=== PATIENT | female | born 1940 | race Caucasian/White ===

== ENCOUNTER 2017-04-05 10:01 | Emergency (ER) | payer MEDICARE, OTHER ==
[2017-04-05] MEDS ORDERED: Nitroglycerin 2% Ointment 1 INCH/1 GM Packet ONE (10:29)
[2017-04-05 10:35] LABS: #Basophils 0.1 thou/uL (0.0-0.2); #Eosinphils 0.2 thou/uL (0.0-0.7); #Lymphocytes 1.4 thou/uL (1.20-3.40); #Monocytes 0.9 thou/uL (0.11-0.59); #Neutrophils 8.1 thou/uL (1.40-6.50); %Basophils 1.2 % (0.0-1.0); %Eosinophils 2.1 % (0.0-10.0); %Lymphocytes 13.2 % (21.0-51.0); %Monocytes 8.3 % (0.0-10.0); %Neutrophils 75.3 % (42.0-75.0); Hemoglobin 14.9 g/dL (12.0-16.0); Mean Corpuscular HGB CONC 33.6 g/dL (32.0-36.0); Mean Corpuscular Hemoglobin 28.9 pg (27.0-31.0); Mean Corpuscular Volume 86.2 fl (81.0-99.0); Mean Platelet Volume 8.8 fL (7.4-10.4); Platelet Count 270 thou/uL (130-400); RBC Distribution Width 11.9 % (11.5-14.5); Red Blood Cell (RBC) Count 5.14 mill/uL (4.20-5.40); White Blood Cell (WBC) Count 10.7 thou/uL (4.8-10.8)
[2017-04-05 10:43] LABS: ALT (SGPT) 24 U/L (8-55); AST (SGOT) 18 U/L (5-34); Albumin 4.2 g/dL (3.4-4.8); Alkaline Phosphatase 85 U/L (40-150); Anion Gap 16 mmol/L (10-20); BUN (Urea Nitrogen) 17 mg/dL (9.8-20.1); Bilirubin, Total 0.5 mg/dL (0.2-1.2); CK (CPK) 147 U/L (29-168); Calc. Creatinine Clearance 0 mL/min (70-130); Calcium 9.8 mg/dL (7.8-10.44); Carbon Dioxide 21 mmol/L (23-31); Chloride 107 mmol/L (98-107); Estimated GFR-MDRD 72; Globulin 2.9 g/dL (2.4-3.5); Glucose 103 mg/dL (83-110); Lipase 11 U/L (8-78); Potassium 4.3 mmol/L (3.5-5.1); Protein, Total 7.1 g/dL (6.0-8.3); Sodium 140 mmol/L (136-145)
[2017-04-05 10:46] LABS: CKMB 5.5 ng/mL (0-6.6)
--- NOTE | 2017-04-05 11:03 | RAD ---
FRONTAL RADIOGRAPH CHEST: Date: 04-05-17 Comparison: 04-09-15 History: Intermittent chest pain. FINDINGS: Mild diffuse increased linear interstitial density with pulmonary hyperinflation, stable. No pneumoth orax, pleural fluid, focal consolidation or alveolar edema. IMPRESSION: No acute findings. Stable appearance to the chest. POS: [facility]
== END 2017-04-05 12:16 | disposition home or self-care (01) ==
LOC: SCSER 10:01
DX: R07.89 Other chest pain (principal); I10 Essential (primary) hypertension; Z87.891 Personal history of nicotine dependence; Z79.899 Other long term (current) drug therapy
CPT/HCPCS: 71045; 80053; 82553; 83690; 84484; 85025; 93005

== ENCOUNTER 2018-06-05 09:15 | Emergency (ER) | payer MEDICARE, OTHER ==
[2018-06-05] MEDS ORDERED: Meclizine HCl 25 MG TAB ONE (09:42)
[2018-06-05 09:56] LABS: #Basophils 0.1 thou/uL (0.0-0.2); #Eosinphils 0.1 thou/uL (0.0-0.7); #Lymphocytes 1.3 thou/uL (1.20-3.40); #Monocytes 0.8 thou/uL (0.11-0.59); #Neutrophils 8.9 thou/uL (1.40-6.50); %Basophils 0.7 % (0.0-1.0); %Lymphocytes 11.3 % (21.0-51.0); %Monocytes 7.4 % (0.0-10.0); %Neutrophils 79.6 % (42.0-75.0); Hemoglobin 15.1 g/dL (12.0-16.0); Mean Corpuscular HGB CONC 32.5 g/dL (32.0-36.0); Mean Corpuscular Hemoglobin 29.6 pg (27.0-31.0); Mean Corpuscular Volume 91.2 fL (78.0-98.0); Platelet Count 258 thou/uL (130-400); RBC Distribution Width 12.3 % (11.5-14.5); White Blood Cell (WBC) Count 11.1 thou/uL (4.8-10.8)
--- NOTE | 2018-06-05 10:05 | RAD ---
XR Chest 1 View Portable History: [Cough] Comparison: Radiograph April 05, 2017 Findings: Lungs are hyperinflated. No pneumothorax. No significant effusion. Cardiac silhouette and m ediastinal contours are similar. No acute osseous abnormality. Impression: Lung hyperinflation suggesting obstructive pulmonary disease. No acute findings.
[2018-06-05 10:26] LABS: ALT (SGPT) 23 U/L (8-55); AST (SGOT) 21 U/L (5-34); Albumin 3.7 g/dL (3.4-4.8); Alkaline Phosphatase 93 U/L (40-150); Anion Gap 11 mmol/L (10-20); BUN (Urea Nitrogen) 22 mg/dL (9.8-20.1); Bilirubin, Total 0.7 mg/dL (0.2-1.2); Calc. Creatinine Clearance 0 mL/min (70-130); Calcium 9.7 mg/dL (7.8-10.44); Carbon Dioxide 27 mmol/L (23-31); Chloride 105 mmol/L (98-107); Estimated GFR-MDRD 71; Globulin 2.5 g/dL (2.4-3.5); Glucose 108 mg/dL (83-110); Potassium 4.3 mmol/L (3.5-5.1); Protein, Total 6.2 g/dL (6.0-8.3); Sodium 139 mmol/L (136-145)
== END 2018-06-05 10:35 | disposition home or self-care (01) ==
LOC: ERS 09:15
DX: H81.399 Other peripheral vertigo, unspecified ear (principal); J32.9 Chronic sinusitis, unspecified; I10 Essential (primary) hypertension; Z87.891 Personal history of nicotine dependence
CPT/HCPCS: 36415; 71045; 80053; 84484; 85025; 93005; J8499

== ENCOUNTER 2019-03-05 06:51 | Outpatient (CLI) | payer MEDICARE, OTHER ==
--- NOTE | 2019-03-05 07:54 | RAD ---
TWO VIEWS CHEST: DATE: 03/05/2019. PROVIDED CLINICAL HISTORY: Pulmonary emphysema. COMPARISON: 01/29/2019. FINDINGS: Cardiac and mediastinal silhouette is unchanged in appearance. Chronic obstructive changes are again seen. No focal consolidation, pleural fluid, or pneumothorax apparent. Degenerative changes are se en involving the thoracic spine. IMPRESSION: No evidence for an acute cardiopulmonary process. POS: [facility]
--- NOTE | 2019-03-05 09:07 | CT ---
CTA ABDOMEN AND PELVIS WITH BILATERAL LOWER EXTREMITY RUNOFF: INDICATIONS: Bilateral lower extremity claudication TECHNIQUE: Multiple CTA images were obtained of the abdomen and pelvis with bilateral lower extremity runoff uti lizing IV contrast and 3D reformatted imaging. Axial, coronal and sagittal reformatted images were constructed from the raw data. FINDINGS: ABDOMEN: Lung bases: Clear Liver: No focal lesion. Gallbladder: Normal appearing. Pancreas: Normal. Adrenal glands: Normal. Spleen: Normal. Kidneys and ureters: There are small right renal cysts. No hydronephrosis is demonstrated. Left kidne y is normal-appearing. Lymph nodes:No lymphadenopathy. Free fluid in abdomen:No free fluid is evident. PELVIS: Small and large bowel: Normal Appendix:Not seen Bladder: Normal. Rectal and perirectal soft tissues:Normal. Reproductive structures: Normal. Free fluid in pelvis: No free fluid is evident. Lymphadenopathy pelvis: No lymphadenopathy is evident. Osseous structures: No acute osseous abnormality. No destructive osteolytic or osteoblastic lesion i s identified. There is scattered degenerative and osteoarthritic changes. Soft tissues:Normal. VASCULATURE: Aorta: There is moderate to severe atherosclerotic calcification involving the abdominal aorta. The a bdominal aorta is normal in caliber. 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 This is a short segment plaque measuring approximately 1 cm in craniocaudad length and is best seen on image 54 of series 2 a nd image 107 of the coronal series. 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 There is moderate narrowi ng of its proximal segment. SMA:There is severe narrowing involving the proximal SMA approximately 1 cm distal to its origin. 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 The right renal duplicated artery dmitriy ginates anterior to the main right renal artery. There is mild narrowing at the origin the remaining right renal artery. A duplicated left renal artery originates inferior to the left main moises al artery and feeds the inferior pole of the left kidney. There is moderate narrowing involving the origin and proximal segment of the left main renal artery. KATELYNN:Normal in caliber without evidence of stenosis or occlusion. Right common iliac artery: There is high-grade stenosis due to partially calcified atherosclerotic pl aque (approximately 90% stenosis) involving the proximal right common iliac artery on image 98 of series 2. Right external iliac artery: Mild atherosclerotic calcification without luminal stenosis Right internal iliac artery: Mild atherosclerotic calcification without luminal stenosis visible. Left common iliac artery: There is moderate narrowing involving the proximal left common iliac artery there is moderate to severe narrowing involving its mid segment from images 96 through 100 of the axial series. This is inducing at least 90% narrowing of the left common iliac artery along its mid s egment. Left external iliac artery: Normal in caliber without evidence of stenosis or occlusion.. Left internal iliac artery: Completely occluded with reconstitution distally through collaterals. Right common femoral artery: There is 50% luminal caliber narrowing involving the distal right commo n femoral artery just prior to its bifurcation. Right deep femoral artery: Normal in caliber without evidence of stenosis or occlusion. Right superficial femoral artery: Normal in caliber without evidence of stenosis or occlusion. Right popliteal artery: Normal in caliber without evidence of stenosis or occlusion. Right posterior tibial artery: Normal in caliber without evidence of stenosis or occlusion. Right anterior tibial artery: Normal in caliber without evidence of stenosis or occlusion. Right peroneal artery: Normal in caliber without evidence of stenosis or occlusion. Left common femoral artery: Normal in caliber without evidence of stenosis or occlusion. Left deep femoral artery: Normal in caliber without evidence of stenosis or occlusion. Left superficial femoral artery: Normal in caliber without evidence of stenosis or occlusion. Left popliteal artery: There is some mild luminal caliber narrowing involving the distal left poplit eal artery due to mild atherosclerotic plaque Left posterior tibial artery: Normal in caliber without evidence of stenosis or occlusion. Left anterior tibial artery: Normal in caliber without evidence of stenosis or occlusion. Left peroneal artery: Normal in caliber without evidence of stenosis or occlusion. Additional findings: None. IMPRESSION: 1. 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 2. 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 3. Severe narrowing involving the proximal SMA. 4. Moderate narrowing involving the origin and proximal segment of the left main renal artery. 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 5. Severe narrowing involving the proximal right common iliac artery. 6. Year narrowing involving the mid segment of the left common iliac artery. 7. 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 8. Approximately 50% luminal caliber narrowing involving the distal right common femoral artery.
[2019-03-05] MEDS ORDERED: Iopamidol 370 76% 100 ML VIAL ONE (13:52)
== END 2019-03-05 06:52 | disposition home or self-care (01) ==
LOC: CT 06:51
PROVIDERS: ATTEND Family Medicine
DX: N18.3 Chronic kidney disease, stage 3 (moderate) (principal); I73.9 Peripheral vascular disease, unspecified; Q25.1 Coarctation of aorta; J43.9 Emphysema, unspecified; I70.0 Atherosclerosis of aorta; I77.1 Stricture of artery; I74.5 Embolism and thrombosis of iliac artery; I77.4 Celiac artery compression syndrome; K55.1 Chronic vascular disorders of intestine; I70.201 Unspecified atherosclerosis of native arteries of extremities, right leg
CPT/HCPCS: 71046; 75635; 82565; Q9967

== ENCOUNTER 2020-10-29 11:15 | Outpatient (CLI) | payer MEDICARE, OTHER | END 2020-10-29 11:16 | disposition home or self-care (01) | LOC: BICRAD 11:15 | PROVIDERS: ATTEND Physician Assistant Medical | DX: K59.00 Constipation, unspecified (principal); R14.0 Abdominal distension (gaseous) | CPT/HCPCS: 74019 ==

== ENCOUNTER 2022-05-11 08:18 | Inpatient (IN) | payer MEDICARE, OTHER ==
[2022-05-11] MEDS ORDERED: fentaNYL PF 100 MCG/2 ML SYRINGE ONE (08:59)
[2022-05-11] MEDS ORDERED: Norepinephrine 4 MG/4 ML VIAL ONE (09:00)
[2022-05-11] MEDS ORDERED: Ketamine 50 MG/ML (10ML VIAL) ONE (09:05)
[2022-05-11] MEDS ORDERED: Albumin 5% 0 ML ONE (09:05)
[2022-05-11] MEDS ORDERED: Midazolam HCl 5 mg/5 ml Vial ONE (09:16)
[2022-05-11] MEDS ORDERED: Vecuronium 10 MG VIAL ONE (09:36)
[2022-05-11] MEDS ORDERED: Phenylephrine 10 MG/ML VIAL ONE (09:36)
[2022-05-11] MEDS ORDERED: Dexamethasone 20 MG/5 ML VIAL ONE (09:36)
[2022-05-11] MEDS ORDERED: PROPOFOL 200 MG/20 ML VIAL ONE (09:36)
[2022-05-11] MEDS ORDERED: Succinylcholine Chloride 100 MG/5 ML SYRINGE FS ONE (09:36)
[2022-05-11] MEDS ORDERED: Propofol 1,000 MG/100 ML VIAL IV ONE (11:21)
[2022-05-11] MEDS ORDERED: Morphine Sulfate 2 MG/ML SYRINGE SLOW IVP PRN (11:44)
[2022-05-11] MEDS ORDERED: HYDROmorphone 2 MG/ML VIAL SLOW IVP PRN (11:44)
[2022-05-11] MEDS ORDERED: Promethazine HCl 25 MG/ML VIAL IM PRN (11:44)
[2022-05-11] MEDS ORDERED: Ondansetron HCl/PF 4 MG/2 ML Vial IVP PRN (11:44)
[2022-05-11] MEDS ORDERED: PACU-Morphine 4MG/ML VIAL SLOW IVP PRN (11:44)
[2022-05-11] MEDS ORDERED: Fentanyl 250 MCG/5 ML VIAL ONE (12:16)
[2022-05-11] MEDS ORDERED: HYDROmorphone 0.5 MG/0.5 ML SYRINGE ONE (12:54)
[2022-05-11] MEDS ORDERED: Fentanyl CADD 100 ML IV SCH (13:45)
[2022-05-11] MEDS ORDERED: Propofol 1,000 MG/100 ML VIAL IV PRN (13:45)
[2022-05-11] MEDS ORDERED: Fentanyl BOLUS 250 ML IVPB PRN (13:45)
[2022-05-11] MEDS ORDERED: Propofol BOLUS 1,000 MG/100 ML VIAL IV PRN (13:45)
[2022-05-11] MEDS ORDERED: Lorazepam 2 MG/ML VIAL SLOW IVP PRN (13:45)
[2022-05-11] MEDS ORDERED: DISCONTINUE PREVIOUS NARCOTIC PAIN MEDICATIONS AND BENZODIAZEPINES FS SCH (13:45)
[2022-05-11] MEDS ORDERED: Morphine 2 MG/ML VIAL SLOW IVP PRN (13:45)
[2022-05-11] MEDS ORDERED: Fentanyl CADD 100 ML ONE (14:39)
[2022-05-11 14:44] LABS: Actual Bicarbonate (HCO3a) 21.8 mEq/L (22-28); Base Excess (BEa) -3.3 mEq/L (-2.0 to +3.0); CO2 Tension 39.3 mmHg (35.0-45.0); Calcium, Ionized (arterial) 1.18 mmol/L (1.12-1.30); Carboxyhemoglobin (COHb) 1.2 gm% (0.0-3.0); Hemoglobin (Hb) 13.5 g/dL (12.0-16.0); O2 Tension (PaO2), arterial 82.3 mmHg (> 60.0); Potassium - ABG Lab 3.85 mmol/L (3.70-5.30); pH, Arterial 7.36 (7.35-7.45)
[2022-05-11 14:45] LABS: ALV-art Gradient 296.375 mmHg (0-20); Puncture Site Arterial Line
[2022-05-11] MEDS ORDERED: Sodium Chloride 0.45% 1,000 ML IV SCH ×2 (14:45→16:50)
[2022-05-11] MEDS ORDERED: Heparin 10,000 UNITS/ 10 ML VIAL SLOW IVP SCH (16:15)
[2022-05-11] MEDS ORDERED: Heparin 25,000 units/D5W 500 ML IVPB SCH (16:15)
[2022-05-11] MEDS ORDERED: hydrALAZINE 20 MG/ML VIAL SLOW IVP PRN (16:44)
[2022-05-11] MEDS ORDERED: Dextrose 5% in Water 1,000 ML IV PRN (16:44)
[2022-05-11] MEDS ORDERED: Dextrose 50% Abboject 50 ML SYRINGE SLOW IVP PRN (16:44)
[2022-05-11] MEDS ORDERED: Insulin Regular 300 UNITS/3 ML VIAL SC PRN (16:44)
[2022-05-11] MEDS ORDERED: Ondansetron PF 4 MG/2 ML Vial IVP PRN (16:44)
[2022-05-11 16:51] LABS: Hemoglobin 13.1 g/dL (12.0-16.0); Platelet Count 169 10x3/uL (130-400)
[2022-05-11] MEDS: Sodium Chloride 0.45% 1,000 ML IV SCH (21:00)
[2022-05-11] MEDS: Famotidine/PF 20 mg/2ml Vial SLOW IVP SCH (21:14)
[2022-05-12] MEDS: Sodium Chloride 0.45% 1,000 ML IV SCH (02:00)
[2022-05-12 03:09] LABS: CO2 Tension 42.7 mmHg (35.0-45.0); Calcium, Ionized (arterial) 1.14 mmol/L (1.12-1.30); Carboxyhemoglobin (COHb) 0.9 gm% (0.0-3.0); Hemoglobin (Hb) 12.3 g/dL (12.0-16.0); O2 Tension (PaO2), arterial 98.2 mmHg (> 60.0); pH, Arterial 7.31 (7.35-7.45)
[2022-05-12 03:11] LABS: ALV-art Gradient 204.925 mmHg (0-20); Puncture Site Arterial Line
[2022-05-12] MEDS ORDERED: Sodium Chloride 0.9% 1,000 ML IV SCH ×2 (04:15→08:45)
[2022-05-12 05:25] LABS: Magnesium 1.6 mg/dL (1.6-2.6)
[2022-05-12] MEDS ORDERED: Dexmedetomidine In 0.9 % NaCl 100 ML IVPB SCH (05:30)
[2022-05-12] MEDS ORDERED: Sodium Chloride 0.9% 500 ML IV SCH (06:45)
[2022-05-12] MEDS ORDERED: Hydrocortisone Sod Succ/PF 100 mg/2 ml Vial IVP SCH (06:45)
[2022-05-12 07:26] LABS: Actual Bicarbonate (HCO3a) 20.3 mEq/L (22-28); Base Excess (BEa) -7.1 mEq/L (-2.0 to +3.0); CO2 Tension 48.6 mmHg (35.0-45.0); Calcium, Ionized (arterial) 1.15 mmol/L (1.12-1.30); Carboxyhemoglobin (COHb) 0.8 gm% (0.0-3.0); Hemoglobin (Hb) 11.9 g/dL (12.0-16.0); O2 Tension (PaO2), arterial 83.3 mmHg (> 60.0); Potassium - ABG Lab 4.52 mmol/L (3.70-5.30); pH, Arterial 7.24 (7.35-7.45)
[2022-05-12 07:29] LABS: Puncture Site Arterial Line
[2022-05-12 07:34] LABS: #Lymphocytes 0.9 thou/uL (1.20-3.40); #Neutrophils 16.2 thou/uL (1.40-6.50); %Basophils 0.2 % (0.0-1.0); %Lymphocytes 4.5 % (21.0-51.0); %Monocytes 10.3 % (0.0-10.0); Hemoglobin 11.7 g/dL (12.0-16.0); Mean Corpuscular HGB CONC 33.1 g/dL (32.0-36.0); Mean Corpuscular Hemoglobin 31.5 pg (27.0-31.0); Mean Corpuscular Volume 95.1 fl (78.0-98.0); Mean Platelet Volume 8.3 fL (7.4-10.4); Platelet Count 161 10x3/uL (130-400); RBC Distribution Width 12.4 % (11.5-14.5); Red Blood Cell (RBC) Count 3.73 mill/uL (4.20-5.40); White Blood Cell (WBC) Count 19.1 10x3/uL (4.8-10.8)
[2022-05-12 07:49] LABS: Lactic Acid 1.1 mmol/L (0.5-2.2)
[2022-05-12 07:58] LABS: ALT (SGPT) 13 U/L (8-55); AST (SGOT) 15 U/L (5-34); Albumin 3.7 g/dL (3.4-4.8); Alkaline Phosphatase 43 U/L (40-110); Anion Gap 11 mmol/L (10-20); BUN (Urea Nitrogen) 20 mg/dL (9.8-20.1); Bilirubin, Total 0.7 mg/dL (0.2-1.2); Calc. Creatinine Clearance 88 mL/min (70-130); Carbon Dioxide 19 mmol/L (23-31); Chloride 108 mmol/L (98-107); Estimated GFR 74; Globulin 2.2 g/dL (2.4-3.5); Glucose 115 mg/dL (83-110); Magnesium 1.6 mg/dL (1.6-2.6); Phosphorus 2.9 mg/dL (2.3-4.7); Potassium 4.5 mmol/L (3.5-5.1); Protein, Total 5.9 g/dL (5.8-8.1); Sodium 133 mmol/L (136-145)
[2022-05-12] MEDS ORDERED: Magnesium 2 GM/50 ML(in water) 2 GM in Premix Bag 1 BAG IVPB SCH (08:45)
[2022-05-12] MEDS: Famotidine/PF 20 mg/2ml Vial SLOW IVP SCH ×2 (08:58→20:38)
[2022-05-12] MEDS: cefOXitin 2 GM in Sodium Chloride 0.9% 100 ML IVPB SCH ×2 (08:59→18:01)
[2022-05-12] MEDS ORDERED: diphenhydrAMINE 25 MG CAP PO PRN (10:06)
[2022-05-12] MEDS ORDERED: Ondansetron PF 4 MG/2 ML Vial IVP PRN (10:06)
[2022-05-12] MEDS ORDERED: diphenhydrAMINE 50 MG/ML VIAL IVP PRN (10:06)
[2022-05-12] MEDS ORDERED: diphenhydrAMINE 50 MG/ML VIAL IM PRN (10:06)
[2022-05-12] MEDS ORDERED: Naloxone HCl 0.4 mg/ml Vial IV PRN (10:06)
[2022-05-12] MEDS ORDERED: HYDROmorphone 10 mg/100 ml CADD IVPB PRN (10:06)
[2022-05-12] MEDS ORDERED: Promethazine HCl 25 MG/ML VIAL IM PRN (10:06)
[2022-05-12] MEDS ORDERED: Furosemide 40 MG/4 ML VIAL ONE (10:11)
[2022-05-12] MEDS ORDERED: Communication Order-Pharmacy FS SCH (10:15)
[2022-05-12] MEDS ORDERED: Furosemide 40 MG/4 ML VIAL SLOW IVP SCH (10:15)
[2022-05-12] MEDS: Hydrocortisone Sod Succ/PF 100 mg/2 ml Vial IVP SCH ×3 (13:19→23:42)
[2022-05-12] MEDS: Ketorolac Tromethamine 30 MG/ML VIAL IVP SCH (21:03)
[2022-05-13] MEDS ORDERED: Haloperidol Lactate 5 MG/ML VIAL SLOW IVP SCH (00:30)
[2022-05-13] MEDS: cefOXitin 2 GM in Sodium Chloride 0.9% 100 ML IVPB SCH ×3 (01:52→17:17)
[2022-05-13] MEDS: Ketorolac Tromethamine 30 MG/ML VIAL IVP SCH (02:21)
[2022-05-13 04:56] LABS: #Basophils 0.1 thou/uL (0.0-0.2); #Lymphocytes 0.5 thou/uL (1.20-3.40); #Monocytes 1.1 thou/uL (0.11-0.59); #Neutrophils 13.1 thou/uL (1.40-6.50); %Basophils 0.8 % (0.0-1.0); %Eosinophils 0.2 % (0.0-10.0); %Lymphocytes 3.1 % (21.0-51.0); %Monocytes 7.3 % (0.0-10.0); %Neutrophils 88.7 % (42.0-75.0); Hemoglobin 9.2 g/dL (12.0-16.0); Mean Corpuscular HGB CONC 32.5 g/dL (32.0-36.0); Mean Corpuscular Hemoglobin 30.5 pg (27.0-31.0); Mean Corpuscular Volume 93.8 fl (78.0-98.0); Mean Platelet Volume 9.8 fL (7.4-10.4); Platelet Count 156 10x3/uL (130-400); RBC Distribution Width 12.2 % (11.5-14.5); Red Blood Cell (RBC) Count 3.02 mill/uL (4.20-5.40); White Blood Cell (WBC) Count 14.7 10x3/uL (4.8-10.8)
[2022-05-13 05:09] LABS: Anion Gap 11 mmol/L (10-20); BUN (Urea Nitrogen) 26 mg/dL (9.8-20.1); Calc. Creatinine Clearance 70 mL/min (70-130); Calcium 8.4 mg/dL (7.8-10.44); Carbon Dioxide 22 mmol/L (23-31); Chloride 110 mmol/L (98-107); Estimated GFR 56; Glucose 129 mg/dL (83-110); Magnesium 2.1 mg/dL (1.6-2.6); Phosphorus 2.6 mg/dL (2.3-4.7); Potassium 4.2 mmol/L (3.5-5.1); Sodium 139 mmol/L (136-145)
[2022-05-13] MEDS: Hydrocortisone Sod Succ/PF 100 mg/2 ml Vial IVP SCH ×3 (05:22→17:17)
[2022-05-13] MEDS ORDERED: Sodium Phosphate 15 MMOL in Sodium Chloride 0.9% 250 ML 250 ML IVPB SCH (08:00)
[2022-05-13] MEDS ORDERED: Midazolam HCl 5 mg/5 ml Vial ONE (08:48)
[2022-05-13] MEDS ORDERED: Fentanyl 250 MCG/5 ML VIAL ONE ×2 (08:48→11:17)
[2022-05-13] MEDS ORDERED: Dexmedetomidine 200 MCG/2 ML VIAL ONE (08:49)
[2022-05-13] MEDS ORDERED: Norepinephrine 4 MG/4 ML VIAL ONE (08:55)
[2022-05-13] MEDS: Famotidine/PF 20 mg/2ml Vial SLOW IVP SCH ×2 (09:00→21:49)
[2022-05-13 09:04] LABS: INR-International Normal Ratio 1.2; PTT 35.8 sec (22.9-36.1); Prothrombin Time 15.1 sec (12.0-14.7)
[2022-05-13] MEDS ORDERED: Ondansetron PF 4 MG/2 ML Vial ONE (09:41)
[2022-05-13] MEDS ORDERED: GLYCOPYRROLATE/PF 0.2 MG/ML VIAL ONE (09:41)
[2022-05-13] MEDS ORDERED: Rocuronium Bromide 10 MG/ML (10ML VIAL) ONE (09:41)
[2022-05-13] MEDS ORDERED: Dexamethasone 20 MG/5 ML VIAL ONE (09:41)
[2022-05-13] MEDS ORDERED: NEOSTIGMINE 3 MG/3 ML SYR 3 MG/3 ML SYRINGE ONE (09:41)
[2022-05-13] MEDS ORDERED: PROPOFOL 200 MG/20 ML VIAL ONE (09:41)
[2022-05-13] MEDS ORDERED: SUGAMMADEX SODIUM 200 MG/2 ML VIAL ONE (11:11)
[2022-05-13] MEDS ORDERED: HYDROmorphone 2 MG/ML VIAL SLOW IVP PRN (11:25)
[2022-05-13] MEDS ORDERED: Promethazine HCl 25 MG/ML VIAL IM PRN (11:25)
[2022-05-13] MEDS ORDERED: Ondansetron HCl/PF 4 MG/2 ML Vial IVP PRN (11:25)
[2022-05-13] MEDS ORDERED: HYDROmorphone 0.5 MG/0.5 ML SYRINGE ONE (11:59)
[2022-05-13] MEDS ORDERED: Heparin 25,000 units/D5W 500 ML IVPB SCH (15:45)
[2022-05-13 16:33] LABS: Hemoglobin 10.4 g/dL (12.0-16.0); Platelet Count 190 10x3/uL (130-400)
[2022-05-13] MEDS: Carvedilol 6.25 MG TAB PO SCH (17:18)
[2022-05-13] MEDS: Heparin 10,000 UNITS/ 10 ML VIAL SLOW IVP SCH ×2 (17:18→22:05)
[2022-05-13] MEDS: Rosuvastatin 20 MG TAB PO SCH (21:49)
[2022-05-14] MEDS: Hydrocortisone Sod Succ/PF 100 mg/2 ml Vial IVP SCH ×4 (00:40→19:11)
[2022-05-14] MEDS: cefOXitin 2 GM in Sodium Chloride 0.9% 100 ML IVPB SCH ×3 (00:40→18:42)
[2022-05-14 04:28] LABS: #Lymphocytes 0.6 thou/uL (1.20-3.40); #Monocytes 1.2 thou/uL (0.11-0.59); %Basophils 0.2 % (0.0-1.0); %Eosinophils 0.1 % (0.0-10.0); %Lymphocytes 4.3 % (21.0-51.0); %Monocytes 8.4 % (0.0-10.0); Hemoglobin 9.4 g/dL (12.0-16.0); Mean Corpuscular HGB CONC 34.4 g/dL (32.0-36.0); Mean Corpuscular Hemoglobin 32.4 pg (27.0-31.0); Mean Corpuscular Volume 94.1 fl (78.0-98.0); Mean Platelet Volume 8.6 fL (7.4-10.4); Platelet Count 177 10x3/uL (130-400); RBC Distribution Width 12.5 % (11.5-14.5); Red Blood Cell (RBC) Count 2.91 mill/uL (4.20-5.40); White Blood Cell (WBC) Count 13.8 10x3/uL (4.8-10.8)
[2022-05-14 04:51] LABS: Anion Gap 11 mmol/L (10-20); BUN (Urea Nitrogen) 26 mg/dL (9.8-20.1); Calc. Creatinine Clearance 89 mL/min (70-130); Calcium 8.6 mg/dL (7.8-10.44); Carbon Dioxide 22 mmol/L (23-31); Chloride 112 mmol/L (98-107); Estimated GFR 75; Glucose 162 mg/dL (83-110); Magnesium 2.2 mg/dL (1.6-2.6); PTT 198.8 sec (22.9-36.1); Phosphorus 2.2 mg/dL (2.3-4.7); Potassium 4.3 mmol/L (3.5-5.1); Sodium 141 mmol/L (136-145)
[2022-05-14] MEDS ORDERED: Sodium Phosphate 30 MMOL in Sodium Chloride 0.9% 250 ML 250 ML IVPB SCH (09:00)
[2022-05-14] MEDS ORDERED: Losartan 25 MG TAB PO SCH (09:00)
[2022-05-14] MEDS: Carvedilol 6.25 MG TAB PO SCH ×2 (09:03→18:42)
[2022-05-14] MEDS: Aspirin 81 mg Enteric Coated Tablet PO SCH (09:03)
[2022-05-14] MEDS: Famotidine/PF 20 mg/2ml Vial SLOW IVP SCH ×2 (09:04→21:10)
[2022-05-14] MEDS ORDERED: traMADol HCl 50 MG TAB PO PRN (11:54)
[2022-05-14] MEDS: Acetaminophen 500 MG TAB PO SCH ×2 (12:15→18:42)
[2022-05-14] MEDS: traMADol HCl 50 MG TAB PO SCH ×2 (12:16→18:43)
[2022-05-14] MEDS: Rosuvastatin 20 MG TAB PO SCH (21:10)
[2022-05-15] MEDS: Hydrocortisone Sod Succ/PF 100 mg/2 ml Vial IVP SCH ×2 (01:32→06:19)
[2022-05-15] MEDS: Acetaminophen 500 MG TAB PO SCH ×4 (01:33→18:08)
[2022-05-15] MEDS: traMADol HCl 50 MG TAB PO SCH ×4 (01:34→18:08)
[2022-05-15] MEDS: cefOXitin 2 GM in Sodium Chloride 0.9% 100 ML IVPB SCH ×3 (01:35→18:04)
[2022-05-15 05:15] LABS: #Lymphocytes 0.8 thou/uL (1.20-3.40); #Monocytes 1.2 thou/uL (0.11-0.59); #Neutrophils 11.5 thou/uL (1.40-6.50); %Basophils 0.1 % (0.0-1.0); %Lymphocytes 5.7 % (21.0-51.0); %Monocytes 8.7 % (0.0-10.0); %Neutrophils 85.5 % (42.0-75.0); Hemoglobin 9.6 g/dL (12.0-16.0); Mean Corpuscular HGB CONC 33.6 g/dL (32.0-36.0); Mean Corpuscular Hemoglobin 31.4 pg (27.0-31.0); Mean Corpuscular Volume 93.6 fl (78.0-98.0); Mean Platelet Volume 8.6 fL (7.4-10.4); Platelet Count 185 10x3/uL (130-400); RBC Distribution Width 12.4 % (11.5-14.5); Red Blood Cell (RBC) Count 3.05 mill/uL (4.20-5.40); White Blood Cell (WBC) Count 13.4 10x3/uL (4.8-10.8)
[2022-05-15 06:13] LABS: Anion Gap 10 mmol/L (10-20); BUN (Urea Nitrogen) 27 mg/dL (9.8-20.1); Calc. Creatinine Clearance 83 mL/min (70-130); Calcium 8.7 mg/dL (7.8-10.44); Carbon Dioxide 23 mmol/L (23-31); Chloride 112 mmol/L (98-107); Estimated GFR 66; Glucose 137 mg/dL (83-110); Magnesium 2.4 mg/dL (1.6-2.6); Phosphorus 2.9 mg/dL (2.3-4.7); Potassium 4.1 mmol/L (3.5-5.1); Sodium 141 mmol/L (136-145)
[2022-05-15] MEDS ORDERED: PHOS-NAK 1 PKT PACK PO SCH (07:45)
[2022-05-15] MEDS: Losartan 25 MG TAB PO SCH (08:18)
[2022-05-15] MEDS: Aspirin 81 mg Enteric Coated Tablet PO SCH (08:18)
[2022-05-15] MEDS: Carvedilol 6.25 MG TAB PO SCH ×2 (08:18→18:05)
[2022-05-15] MEDS: Famotidine/PF 20 mg/2ml Vial SLOW IVP SCH ×2 (08:18→21:54)
[2022-05-15] MEDS: Hydrochlorothiazide 25 MG TAB PO SCH (08:18)
[2022-05-15] MEDS ORDERED: Rosuvastatin 10 MG TAB PO SCH (09:00)
[2022-05-15] MEDS ORDERED: Furosemide 40 MG/4 ML VIAL SLOW IVP SCH (10:00)
[2022-05-15] MEDS: Albuterol 200 PUFF (6.7GM INHALER) INH SCH ×2 (12:57→19:18)
[2022-05-15] MEDS: Rosuvastatin 20 MG TAB PO SCH (21:54)
[2022-05-16] MEDS: Albuterol 200 PUFF (6.7GM INHALER) INH SCH ×4 (00:53→19:02)
[2022-05-16] MEDS: Acetaminophen 500 MG TAB PO SCH ×4 (01:23→17:30)
[2022-05-16] MEDS: traMADol HCl 50 MG TAB PO SCH ×4 (01:24→17:30)
[2022-05-16] MEDS: cefOXitin 2 GM in Sodium Chloride 0.9% 100 ML IVPB SCH ×3 (02:43→17:29)
[2022-05-16 06:10] VITALS: BMI 34.2
[2022-05-16 06:47] LABS: Hemoglobin 9.6 g/dL (12.0-16.0); Mean Corpuscular HGB CONC 31.3 g/dL (32.0-36.0); Mean Corpuscular Hemoglobin 29.4 pg (27.0-31.0); Mean Corpuscular Volume 93.8 fl (78.0-98.0); Mean Platelet Volume 8.4 fL (7.4-10.4); Platelet Count 227 10x3/uL (130-400); RBC Distribution Width 12.5 % (11.5-14.5); Red Blood Cell (RBC) Count 3.26 mill/uL (4.20-5.40); White Blood Cell (WBC) Count 13.4 10x3/uL (4.8-10.8)
[2022-05-16 06:53] LABS: Anion Gap 7 mmol/L (10-20); BUN (Urea Nitrogen) 24 mg/dL (9.8-20.1); Calc. Creatinine Clearance 75 mL/min (70-130); Carbon Dioxide 30 mmol/L (23-31); Chloride 106 mmol/L (98-107); Estimated GFR 60; Glucose 121 mg/dL (83-110); Magnesium 2.2 mg/dL (1.6-2.6); Phosphorus 2.4 mg/dL (2.3-4.7); Potassium 3.2 mmol/L (3.5-5.1); Sodium 140 mmol/L (136-145)
[2022-05-16 07:26] LABS: Band 1 % (5-11); Eosinophils 1 % (0-10); Lymphocytes 13 % (21-51); MDiff Complete? YES; Monocytes 5 % (0-10); Neutrophil 80 % (42-75); Platelet Morphology Comment Appears Adequate; Polychromasia SLIGHT = 2-3 cells (100X) (0-2/hpf)
[2022-05-16] MEDS ORDERED: Potassium Phosphate 30 MMOL in Sodium Chloride 0.9% 250 ML 250 ML IVPB SCH (07:30)
[2022-05-16] MEDS: Losartan 25 MG TAB PO SCH (08:20)
[2022-05-16] MEDS: Famotidine/PF 20 mg/2ml Vial SLOW IVP SCH ×2 (08:21→21:20)
[2022-05-16] MEDS: Carvedilol 6.25 MG TAB PO SCH ×2 (08:21→17:29)
[2022-05-16] MEDS: Hydrochlorothiazide 25 MG TAB PO SCH (08:21)
[2022-05-16] MEDS: Aspirin 81 mg Enteric Coated Tablet PO SCH (08:21)
[2022-05-16] MEDS: Rosuvastatin 20 MG TAB PO SCH (21:19)
[2022-05-17] MEDS: Albuterol 200 PUFF (6.7GM INHALER) INH SCH ×3 (00:05→14:27)
[2022-05-17] MEDS: traMADol HCl 50 MG TAB PO SCH ×3 (00:29→11:20)
[2022-05-17] MEDS: cefOXitin 2 GM in Sodium Chloride 0.9% 100 ML IVPB SCH ×2 (00:29→09:14)
[2022-05-17] MEDS: Acetaminophen 500 MG TAB PO SCH ×3 (00:30→11:20)
[2022-05-17 06:19] LABS: #Eosinphils 0.3 thou/uL (0.0-0.7); #Lymphocytes 1.4 thou/uL (1.20-3.40); #Monocytes 1.4 thou/uL (0.11-0.59); #Neutrophils 10.4 thou/uL (1.40-6.50); %Basophils 0.2 % (0.0-1.0); %Eosinophils 2.1 % (0.0-10.0); %Lymphocytes 10.4 % (21.0-51.0); %Monocytes 10.1 % (0.0-10.0); %Neutrophils 77.2 % (42.0-75.0); Hemoglobin 9.1 g/dL (12.0-16.0); Mean Corpuscular HGB CONC 32.5 g/dL (32.0-36.0); Mean Corpuscular Hemoglobin 30.3 pg (27.0-31.0); Mean Corpuscular Volume 93.5 fl (78.0-98.0); Mean Platelet Volume 8.3 fL (7.4-10.4); Platelet Count 219 10x3/uL (130-400); RBC Distribution Width 12.4 % (11.5-14.5); White Blood Cell (WBC) Count 13.5 10x3/uL (4.8-10.8)
[2022-05-17 06:47] LABS: Anion Gap 13 mmol/L (10-20); BUN (Urea Nitrogen) 17 mg/dL (9.8-20.1); Calc. Creatinine Clearance 90 mL/min (70-130); Calcium 8.6 mg/dL (7.8-10.44); Carbon Dioxide 25 mmol/L (23-31); Chloride 105 mmol/L (98-107); Estimated GFR 78; Glucose 98 mg/dL (83-110); Phosphorus 3.3 mg/dL (2.3-4.7); Potassium 3.4 mmol/L (3.5-5.1); Sodium 140 mmol/L (136-145)
[2022-05-17] MEDS ORDERED: Potassium Chloride 40 MEQ in Premix Bag 1 BAG IVPB SCH (08:00)
[2022-05-17] MEDS: Hydrochlorothiazide 25 MG TAB PO SCH (09:15)
[2022-05-17] MEDS: Aspirin 81 mg Enteric Coated Tablet PO SCH (09:15)
[2022-05-17] MEDS: Losartan 25 MG TAB PO SCH (09:15)
[2022-05-17] MEDS: Carvedilol 6.25 MG TAB PO SCH (09:15)
[2022-05-17] MEDS: Potassium Chloride 20 MEQ in Premix Bag 1 BAG IVPB SCH ×2 (10:18→14:14)
[2022-05-17] MEDS ORDERED: Potassium Chloride 20 MEQ TAB PO SCH (12:00)
[2022-05-17 16:30] VITALS: BP 146/74; TEMP 97.7
[2022-05-17] MEDS ORDERED: Ciprofloxacin 500 MG TAB PO SCH (20:00)
[2022-05-17] MEDS ORDERED: metroNIDAZOLE 500 MG TAB PO SCH (21:00)
[2022-05-18] MEDS ORDERED: Clopidogrel Bisulfate 75 MG TAB PO SCH (09:00)
[2022-05-19 12:56] LABS: Analyzer IN Cardio OR; CO2 Tension 38.2 mmHg (35.0-45.0); Calcium, Ionized (arterial) 1.17 mmol/L (1.12-1.30); Carboxyhemoglobin (COHb) 0.3 gm% (0.0-3.0); Hemoglobin (Hb) 13.3 g/dL (12.0-16.0); O2 Tension (PaO2), arterial 240.6 mmHg (> 60.0); Potassium - ABG Lab 3.93 mmol/L (3.70-5.30); Puncture Site Arterial Line; pH, Arterial 7.36 (7.35-7.45)
== END 2022-05-17 16:30 | disposition home health service (06) | DRG 329 ==
LOC: SDC 08:18 → CCU 12:22 → IMCU/EMU 05-13 15:36 → SJJU 05-16 12:18
PROVIDERS: ADMIT Surgery; ATTEND Surgery
PROC: 0DTF0ZZ Resection of Right Large Intestine, Open Approach (ICD-10-PCS; principal; 2022-05-11)
PROC: 0D1B0Z4 Bypass Ileum to Cutaneous, Open Approach (ICD-10-PCS; 2022-05-11)
PROC: 4A133R1 Monitoring of Arterial Saturation, Peripheral, Percutaneous Approach (ICD-10-PCS; 2022-05-11)
PROC: 0WJG0ZZ Inspection of Peritoneal Cavity, Open Approach (ICD-10-PCS; 2022-05-13)
DX: K55.039 Acute (reversible) ischemia of large intestine, extent unspecified (principal); J95.821 Acute postprocedural respiratory failure; K65.9 Peritonitis, unspecified; K63.1 Perforation of intestine (nontraumatic); E87.1 Hypo-osmolality and hyponatremia; J98.11 Atelectasis; E27.40 Unspecified adrenocortical insufficiency; I50.32 Chronic diastolic (congestive) heart failure; E66.01 Morbid (severe) obesity due to excess calories; E11.51 Type 2 diabetes mellitus with diabetic peripheral angiopathy without gangrene; F17.210 Nicotine dependence, cigarettes, uncomplicated; K63.89 Other specified diseases of intestine; G43.909 Migraine, unspecified, not intractable, without status migrainosus; I95.9 Hypotension, unspecified; I11.0 Hypertensive heart disease with heart failure; E78.00 Pure hypercholesterolemia, unspecified; D72.829 Elevated white blood cell count, unspecified; E83.39 Other disorders of phosphorus metabolism; Z90.49 Acquired absence of other specified parts of digestive tract; Z88.6 Allergy status to analgesic agent; Z88.2 Allergy status to sulfonamides; Z88.0 Allergy status to penicillin; Z88.1 Allergy status to other antibiotic agents; Z86.73 Personal history of transient ischemic attack (TIA), and cerebral infarction without residual deficits; Z68.33 Body mass index [BMI] 33.0-33.9, adult; Z79.899 Other long term (current) drug therapy
CPT/HCPCS: 36415; 36416; 71045; 74018; 80048; 80053; 80061; 82533; 82805; 83605; 83735; 84100; 84484; 85025; 85610; 85730; 86850; 86900; 86901; 88307; 93005; 93010; 93306; 94002; 94003; 97139; A4649; C1776; J0694; J1100; J1170; J1200; J1630; J1644; J1650; J1720; J1815; J1885; J1940; J2250; J2370; J2405; J2704; J3010; J3475; J3480; J3490; J7030; J7050; P9045; S0028

== ENCOUNTER 2022-05-21 23:50 | Observation (INO) | payer MEDICARE, OTHER ==
[2022-05-22 00:55] VITALS: BMI 32.5
[2022-05-22] MEDS ORDERED: Acetaminophen 650 MG Suppository PR PRN (01:30)
[2022-05-22] MEDS ORDERED: Ondansetron PF 4 MG/2 ML Vial IVP PRN ×2 (01:30)
[2022-05-22] MEDS ORDERED: HYDROcodone/Acetaminophen 5/325 mg Tablet PO PRN (01:30)
[2022-05-22] MEDS ORDERED: Acetaminophen 325 MG TAB PO PRN ×2 (01:30)
[2022-05-22] MEDS ORDERED: Ondansetron ODT 4 MG TAB SL PRN (01:30)
[2022-05-22] MEDS ORDERED: Sodium Chloride 0.9% 1,000 ML IV SCH (01:30)
[2022-05-22] MEDS ORDERED: Ondansetron ODT 4 MG TAB PO PRN (01:30)
[2022-05-22] MEDS ORDERED: Morphine 2 MG/ML VIAL SLOW IVP PRN (01:35)
[2022-05-22] MEDS ORDERED: Pantoprazole 40 MG VIAL IVP SCH (01:45)
[2022-05-22] MEDS: Sodium Chloride 0.9% 1,000 ML IV SCH ×2 (02:00→15:07)
[2022-05-22 02:11] LABS: Hemoglobin 9.9 g/dL (12.0-16.0)
[2022-05-22 03:34] LABS: Bacteria/HPF None Seen HPF (None Seen); Bilirubin Negative (Negative); Blood, Urine Negative (Negative); Clarity Clear (Clear); Glucose, Urine (Dipstick) Normal (Negative); Ketone, Urine Trace mg/dL (Negative); Leukocyte 75 Leu/uL (Negative); Nitrite Negative (Negative); Protein, Urine (Dipstick) Negative (Neg-Trace); Urobilinogen Normal mg/dL (Less than 2); pH, Urine 7.5 (5.0-9.0)
[2022-05-22 03:35] LABS: Specific Gravity, Urine Greater than 1.060 (1.002-1.036)
[2022-05-22] MEDS: Pantoprazole 40 MG VIAL IVP SCH ×2 (08:46→21:00)
[2022-05-22 10:18] LABS: INR-International Normal Ratio 1.3; PTT 35.8 sec (22.9-36.1); Prothrombin Time 16.7 sec (12.0-14.7)
[2022-05-22 11:08] LABS: Hemoglobin 9.1 g/dL (12.0-16.0); Mean Corpuscular HGB CONC 33.1 g/dL (32.0-36.0); Mean Corpuscular Hemoglobin 31.3 pg (27.0-31.0); Mean Corpuscular Volume 94.7 fl (78.0-98.0); RBC Distribution Width 13.1 % (11.5-14.5); Red Blood Cell (RBC) Count 2.89 mill/uL (4.20-5.40); White Blood Cell (WBC) Count 11.6 10x3/uL (4.8-10.8)
[2022-05-22 11:19] LABS: Anion Gap 15 mmol/L (10-20); BUN (Urea Nitrogen) 9 mg/dL (9.8-20.1); Calc. Creatinine Clearance 80 mL/min (70-130); Calcium 8.4 mg/dL (7.8-10.44); Carbon Dioxide 19 mmol/L (23-31); Chloride 109 mmol/L (98-107); Estimated GFR 70; Glucose 113 mg/dL (83-110); Potassium 3.7 mmol/L (3.5-5.1); Sodium 139 mmol/L (136-145)
[2022-05-22 13:02] LABS: #Eosinphils 0.3 thou/uL (0.0-0.7); #Lymphocytes 1.2 thou/uL (1.20-3.40); #Monocytes 1.4 thou/uL (0.11-0.59); #Neutrophils 8.7 thou/uL (1.40-6.50); %Basophils 0.2 % (0.0-1.0); %Eosinophils 2.6 % (0.0-10.0); %Lymphocytes 10.3 % (21.0-51.0); %Monocytes 12.3 % (0.0-10.0); %Neutrophils 74.6 % (42.0-75.0); Mean Platelet Volume 7.9 fL (7.4-10.4); Platelet Count 319 10x3/uL (130-400)
[2022-05-22] MEDS: Carvedilol 6.25 MG TAB PO SCH (21:00)
[2022-05-23] MEDS: Sodium Chloride 0.9% 1,000 ML IV SCH (04:25)
[2022-05-23 04:40] VITALS: TEMP 97.8
[2022-05-23 04:53] LABS: #Eosinphils 0.4 thou/uL (0.0-0.7); #Lymphocytes 1.6 thou/uL (1.20-3.40); #Monocytes 1.4 thou/uL (0.11-0.59); %Basophils 0.1 % (0.0-1.0); %Eosinophils 3.4 % (0.0-10.0); %Lymphocytes 13.8 % (21.0-51.0); %Monocytes 12.5 % (0.0-10.0); %Neutrophils 70.2 % (42.0-75.0); Hemoglobin 8.7 g/dL (12.0-16.0); Mean Corpuscular Hemoglobin 31.9 pg (27.0-31.0); Mean Corpuscular Volume 93.7 fl (78.0-98.0); Mean Platelet Volume 7.8 fL (7.4-10.4); Platelet Count 297 10x3/uL (130-400); RBC Distribution Width 13.1 % (11.5-14.5); Red Blood Cell (RBC) Count 2.73 mill/uL (4.20-5.40); White Blood Cell (WBC) Count 11.4 10x3/uL (4.8-10.8)
[2022-05-23 05:01] LABS: INR-International Normal Ratio 1.2; PTT 32.2 sec (22.9-36.1); Prothrombin Time 16.2 sec (12.0-14.7)
[2022-05-23 05:11] LABS: Anion Gap 11 mmol/L (10-20); BUN (Urea Nitrogen) 7 mg/dL (9.8-20.1); Calc. Creatinine Clearance 85 mL/min (70-130); Calcium 8.4 mg/dL (7.8-10.44); Carbon Dioxide 23 mmol/L (23-31); Chloride 111 mmol/L (98-107); Estimated GFR 76; Glucose 108 mg/dL (83-110); Potassium 3.8 mmol/L (3.5-5.1); Sodium 141 mmol/L (136-145)
[2022-05-23] MEDS ORDERED: Rosuvastatin 10 MG TAB PO SCH (09:00)
[2022-05-23] MEDS ORDERED: Ascorbic Acid 500 mg Chewable Tablet PO SCH (09:00)
[2022-05-23] MEDS ORDERED: Losartan 25 MG TAB PO SCH (09:00)
[2022-05-23 09:45] VITALS: BP 156/56
[2022-05-23] MEDS: Carvedilol 6.25 MG TAB PO SCH (10:08)
[2022-05-23] MEDS: Pantoprazole 40 MG VIAL IVP SCH (10:15)
[2022-05-23] MEDS ORDERED: Ferrous Sulfate 325 MG TAB PO SCH (17:00)
== END 2022-05-23 13:00 | disposition home or self-care (01) ==
LOC: 2NO 05-22 00:37
PROVIDERS: ADMIT Internal Medicine; ATTEND Internal Medicine
DX: K62.5 Hemorrhage of anus and rectum (principal); D72.829 Elevated white blood cell count, unspecified; I73.9 Peripheral vascular disease, unspecified; I11.0 Hypertensive heart disease with heart failure; I50.30 Unspecified diastolic (congestive) heart failure; E78.00 Pure hypercholesterolemia, unspecified; J44.9 Chronic obstructive pulmonary disease, unspecified; D64.9 Anemia, unspecified; Z66 Do not resuscitate; Z79.2 Long term (current) use of antibiotics; Z79.899 Other long term (current) drug therapy; Z88.0 Allergy status to penicillin; Z88.1 Allergy status to other antibiotic agents; Z88.2 Allergy status to sulfonamides; Z88.5 Allergy status to narcotic agent; Z90.49 Acquired absence of other specified parts of digestive tract
CPT/HCPCS: 80048 ×2; 81001; 83880; 85014; 85018; 85025 ×2; 85610 ×2; 85730 ×2; 86850; 86900; 86901; 93005; 96374; 96376; G0378 ×2; G0379; 36415; 93010; C9113; J7050